=== PATIENT | female | born 1985 | race Caucasian/White ===

== ENCOUNTER 2016-03-29 19:48 | Emergency (ER) | payer BC ==
[~2016-03-29] VITALS: Ht 177.8 cm; Wt 163.6 kg
[~2016-03-29 19:48] MED LIST: ALDOMET 250MG250 MG PO; AMOXICILLIN 8751 TAB PO; ANTIVERT 25MG25 MG PO; ATIVAN 0.50.5 MG/TAB PO; BACTRIM DS 8001 TAB PO; BCP TD; CARAFATE 1GM1 G PO; METHYLDOPA PO; MOTRIN 600600 MG/TAB PO; MOTRIN 800800 MG/TAB PO; NORCO 325 MG-7.1 TAB PO; PERCOCET 325 MG1 TA2 PO; PRENATAL VITAMI1 TA5 PO; PRENATAL1 TA1; PROCARDIA XL 6060 MG PO; PROTONIX 40MG T40 MG PO
[2016-03-29 19:52] VITALS: TEMP 98.6
[2016-03-29] MEDS ORDERED: PRILOSEC 20MG20 MG PO (19:56)
[2016-03-29] MEDS ORDERED: NORCO 325 MG-51 TAB PO (20:42)
[2016-03-29] MEDS ORDERED: BACTRIM DS 8001 TAB PO (20:42)
[2016-03-29 20:51] VITALS: BP 143/85; PULSE 89
== END 2016-03-29 20:53 | disposition home or self-care (01) ==
LOC: COL.ER 19:48
DX: L02.412 Cutaneous abscess of left axilla (principal)

== ENCOUNTER 2016-10-07 18:28 | Emergency (ER) | payer BC ==
[~2016-10-07] VITALS: Ht 177.8 cm; Wt 159.1 kg
[~2016-10-07 18:28] MED LIST changes: +NORCO 325 MG-51 TAB PO; +PRILOSEC 20MG20 MG PO
[2016-10-07 18:30] VITALS: TEMP 98.5
[2016-10-07 19:08] LABS: BASO # 0.1 (0.0-0.2); BASO % 0.7 % (0.0-2.0); EOS # 0.2 (0.0-0.7); EOS % 1.5 % (0-4.0); GRAN # 6.9 (1.4-6.5); GRAN % 57.4 % (42.2-75.2); HEMATOCRIT 39.3 % (37.0-47.0); LYMPH # 4.1 (1.2-3.4); LYMPH % 33.6 % (20.0-51.0); MEAN CELL VOLUME 75 fl (80.0-100.0); MEAN CORPUSCULAR HEMOGLOBIN 23 pg (27.0-31.0); MEAN CORPUSCULAR HGB CONC 30 g/dl (33.0-37.0); MEAN PLATELET VOLUME 10.3 fl (7.4-10.4); MONO # 0.8 (0.1-0.6); MONO % 6.4 % (1.7-9.3); PLATELET COUNT 394 K/mm3 (130-400); RED BLOOD COUNT 5.24 M/mm3 (4.10-5.30); REDCELL DISTRIBUTION WIDTH-CV 15.5 % (11.5-14.5); WHITE BLOOD COUNT 12.1 K/mm3 (4.8-10.8)
[2016-10-07 19:09] LABS: HEMOGLOBIN 11.8 g/dl (12.5-16.0)
[2016-10-07 19:21] LABS: ADJUSTED CALCIUM 9.3 mg/dL (8.4-10.2); ALANINE AMINOTRANSFERASE 61 U/L (9-52); ALBUMIN 4.6 gm/dL (3.5-5.0); ALKALINE PHOSPHATASE 106 U/L (50-136); ANION GAP 14 mmol/L (7-16); BILIRUBIN,TOTAL 0.9 mg/dL (0.0-1.0); BLOOD UREA NITROGEN 12 mg/dL (7-17); C-REACTIVE PROTEIN 1.3 mg/dL (0.0-0.9); CALCIUM 9.8 mg/dL (8.4-10.2); CARBON DIOXIDE 24 mmol/L (22-30); CHLORIDE 101 mmol/L (98-107); GLUCOSE 123 mg/dL (74-106); LIPASE 131 U/L (23-300); POTASSIUM 3.9 mmol/L (3.4-5.0); SODIUM 139 mmol/L (137-145); TOTAL PROTEIN 8.6 gm/dL (6.4-8.2)
[2016-10-07 19:34] LABS: TROPONIN-I < 0.012 ng/mL (0.000-0.034)
[2016-10-07] MEDS ORDERED: PROTONIX 40MG T40 MG PO (20:03)
[2016-10-07 20:39] VITALS: BP 115/68; PULSE 81
== END 2016-10-07 20:41 | disposition home or self-care (01) ==
LOC: COL.ER 18:28
PROVIDERS: Emergency Medicine
DX: R07.89 Other chest pain (principal)
CPT/HCPCS: J7030

== ENCOUNTER → 2017-04-27 | Outpatient (CLI) | payer BC | LOC: COL.RAD 12:29 | DX: R10.11 Right upper quadrant pain (principal); R79.89 Other specified abnormal findings of blood chemistry ==

== ENCOUNTER → 2017-06-28 | Outpatient (CLI) | payer BC | LOC: COL.LAB 14:57 → COL.RAD 15:00 | DX: R10.32 Left lower quadrant pain (principal); R50.9 Fever, unspecified | CPT/HCPCS: Q9967 ==

== ENCOUNTER 2017-07-02 08:41 | Emergency (ER) | payer BC ==
[~2017-07-02] VITALS: Ht 177.8 cm; Wt 150.0 kg
[2017-07-02 09:28] LABS: BASO # 0.1 (0.0-0.2); BASO % 0.7 % (0.0-2.0); EOS # 0.1 (0.0-0.7); EOS % 1.4 % (0-4.0); GRAN # 3.9 (1.4-6.5); GRAN % 55.5 % (42.2-75.2); LYMPH # 2.5 (1.2-3.4); LYMPH % 35.1 % (20.0-51.0); MEAN CELL VOLUME 74 fl (80.0-100.0); MEAN CORPUSCULAR HGB CONC 29 g/dl (33.0-37.0); MEAN PLATELET VOLUME 10.1 fl (7.4-10.4); MONO # 0.5 (0.1-0.6); PLATELET COUNT 359 K/mm3 (130-400); RED BLOOD COUNT 4.55 M/mm3 (4.10-5.30); REDCELL DISTRIBUTION WIDTH-CV 16.2 % (11.5-14.5)
[2017-07-02 09:29] LABS: HEMATOCRIT 33.7 % (37.0-47.0); HEMOGLOBIN 9.8 g/dl (12.5-16.0); MEAN CORPUSCULAR HEMOGLOBIN 22 pg (27.0-31.0)
[2017-07-02] MEDS ORDERED: CIPRO 500MG TA500 MG PO (09:37)
[2017-07-02] MEDS ORDERED: GLUCOPHAGE1000 MG PO (09:37)
[2017-07-02] MEDS ORDERED: VICTOZA6 MG/ML SQ (09:37)
[2017-07-02 09:38] LABS: ALBUMIN 3.6 gm/dL (3.5-5.0); BILIRUBIN,TOTAL 0.5 mg/dL (0.0-1.0); C-REACTIVE PROTEIN 1.2 mg/dL (0.0-0.9); CALCIUM 8.6 mg/dL (8.4-10.2); CREATININE, serum 0.65 mg/dL (0.52-1.25); TOTAL PROTEIN 7.3 gm/dL (6.4-8.2)
[2017-07-02 09:55] VITALS: BP 131/60; TEMP 98.1
[2017-07-02 10:36] LABS: COLLECTION METHOD CLEAN CATCH
[2017-07-02 10:43] LABS: PH 6 (5-8); URINE APPEARANCE Clear; URINE BACTERIA None Seen /hpf; URINE BILIRUBIN Negative (NEGATIVE); URINE BLOOD 1+ (NEGATIVE); URINE COLOR Yellow; URINE GLUCOSE 3+ (NEGATIVE); URINE KETONE Negative (NEGATIVE); URINE LEUKOCYTE ESTERASE Negative (NEGATIVE); URINE NITRATE Negative (NEGATIVE); URINE PROTEIN(semi-quant) Negative (NEGATIVE); URINE RBC 0-2 /hpf; URINE UROBILINOGEN Negative (NEGATIVE)
[2017-07-02] MEDS ORDERED: NORCO 325 MG-51 TAB PO (10:45)
[2017-07-02 11:18] VITALS: PULSE 66
== END 2017-07-02 11:18 | disposition home or self-care (01) ==
LOC: COL.ER 08:41
PROVIDERS: Physician Assistant
DX: R10.32 Left lower quadrant pain (principal); E11.9 Type 2 diabetes mellitus without complications; R19.7 Diarrhea, unspecified; K21.9 Gastro-esophageal reflux disease without esophagitis; Z79.84 Long term (current) use of oral hypoglycemic drugs; D50.9 Iron deficiency anemia, unspecified
CPT/HCPCS: J1170; J2405; J2550; J7030

== ENCOUNTER 2017-07-16 12:57 | Day surgery (SDC) | payer BC ==
[~2017-07-16] VITALS: Ht 177.8 cm; Wt 147.2 kg
[~2017-07-16 12:57] MED LIST changes: +CIPRO 500MG TA500 MG PO; +GLUCOPHAGE1000 MG PO; +VICTOZA6 MG/ML SQ
[2017-07-16 13:32] VITALS: BP 148/105; PULSE 71; TEMP 97.4
[2017-07-16] MEDS ORDERED: VICTOZA6 MG/ML SQ (13:41)
[2017-07-16] MEDS ORDERED: GLUCOPHAGE XR500 M1 PO (13:41)
[2017-07-16] MEDS ORDERED: ULTRAM 50MG TAB50 MG PO (13:42)
[2017-07-16] MEDS ORDERED: NATURAL IRON65 MG PO (13:43)
[2017-07-16] MEDS ORDERED: TYLENOL 500MG500 MG PO (13:43)
[2017-07-16 15:20] VITALS: BP 133/70; PULSE 84
[2017-07-16 15:35] VITALS: BP 137/76; PULSE 64
[2017-07-16 16:17] VITALS: BP 145/75; PULSE 74
== END 2017-07-16 15:40 | disposition home or self-care (01) ==
LOC: SDCO 12:57
DX: R10.32 Left lower quadrant pain (principal); K21.9 Gastro-esophageal reflux disease without esophagitis; R19.4 Change in bowel habit; K59.00 Constipation, unspecified; E11.9 Type 2 diabetes mellitus without complications; D64.9 Anemia, unspecified; G47.33 Obstructive sleep apnea (adult) (pediatric); Z79.84 Long term (current) use of oral hypoglycemic drugs; Z90.49 Acquired absence of other specified parts of digestive tract
CPT/HCPCS: OP; J2250; J2405; J3010; J7030

== ENCOUNTER → 2017-07-22 | Outpatient (CLI) | payer BC ==
[~2017-07-22] MED LIST changes: +GLUCOPHAGE XR500 M1 PO; +NATURAL IRON65 MG PO; +TYLENOL 500MG500 MG PO; +ULTRAM 50MG TAB50 MG PO
== END ==
LOC: SUN.DIA 14:16
DX: E11.9 Type 2 diabetes mellitus without complications (principal); E66.9 Obesity, unspecified; Z68.42 Body mass index [BMI] 45.0-49.9, adult; Z71.3 Dietary counseling and surveillance; Z87.891 Personal history of nicotine dependence
CPT/HCPCS: G0108

== ENCOUNTER → 2017-08-10 | Outpatient (CLI) | payer BC | LOC: COL.RAD 06:03 | DX: R11.10 Vomiting, unspecified (principal) | CPT/HCPCS: A9541 ==

== ENCOUNTER 2018-07-11 12:23 | Emergency (ER) | payer BC ==
[~2018-07-11] VITALS: Ht 177.8 cm; Wt 165.7 kg
[2018-07-11 12:32] VITALS: TEMP 98.1
[2018-07-11 13:13] LABS: BASO % 0.2 % (0.0-2.0); EOS # 0.1 (0.0-0.7); EOS % 1.1 % (0-4.0); GRAN # 8.1 (1.4-6.5); GRAN % 66.4 % (42.2-75.2); HEMATOCRIT 39.8 % (37.0-47.0); HEMOGLOBIN 12.5 g/dl (12.5-16.0); LYMPH % 24.9 % (20.0-51.0); MEAN CELL VOLUME 77 fl (80.0-100.0); MEAN CORPUSCULAR HEMOGLOBIN 24 pg (27.0-31.0); MEAN CORPUSCULAR HGB CONC 31 g/dl (33.0-37.0); MEAN PLATELET VOLUME 10.7 fl (7.4-10.4); MONO # 0.9 (0.1-0.6); PLATELET COUNT 300 K/mm3 (130-400); RED BLOOD COUNT 5.15 M/mm3 (4.10-5.30); REDCELL DISTRIBUTION WIDTH-CV 15.9 % (11.5-14.5)
[2018-07-11 13:32] LABS: COLLECTION METHOD CLEAN CATCH
[2018-07-11 13:34] LABS: TROPONIN-I < 0.012 ng/mL (0.000-0.035)
[2018-07-11 13:40] LABS: PH 7 (5-8); URINE APPEARANCE Clear; URINE BACTERIA Rare /hpf; URINE BILIRUBIN Negative (NEGATIVE); URINE BLOOD 1+ (NEGATIVE); URINE COLOR Straw; URINE GLUCOSE Negative (NEGATIVE); URINE KETONE Negative (NEGATIVE); URINE LEUKOCYTE ESTERASE Negative (NEGATIVE); URINE NITRATE Negative (NEGATIVE); URINE PROTEIN(semi-quant) Negative (NEGATIVE); URINE RBC 0-2 /hpf; URINE UROBILINOGEN Negative (NEGATIVE)
[2018-07-11 14:05] LABS: ALBUMIN 3.8 gm/dL (3.5-5.0); BILIRUBIN,TOTAL 0.5 mg/dL (0.0-1.0); CALCIUM 9.3 mg/dL (8.4-10.2); CREATININE, serum 0.47 (0.52-1.25); POTASSIUM 3.7 mmol/L (3.4-5.0); TOTAL PROTEIN 7.6 gm/dL (6.4-8.2)
[2018-07-11 17:28] VITALS: BP 135/80; PULSE 84
== END 2018-07-11 17:31 | disposition other institution (70) ==
LOC: COL.ER 12:23
PROVIDERS: Emergency Medicine
DX: O99.512 Diseases of the respiratory system complicating pregnancy, second trimester (principal); R06.00 Dyspnea, unspecified; Z3A.16 16 weeks gestation of pregnancy

== ENCOUNTER → 2018-08-31 | Outpatient (CLI) | payer BC | LOC: SUN.DIA | DX: O24.419 Gestational diabetes mellitus in pregnancy, unspecified control (principal); Z3A.22 22 weeks gestation of pregnancy | CPT/HCPCS: G0108 ==

== ENCOUNTER 2018-09-06 23:06 | Outpatient (CLI) | payer BC ==
[~2018-09-06] VITALS: Ht 175.3 cm; Wt 163.2 kg
--- NOTE | 2018-09-06 23:10 | NUR ---
Ambulatory to unit, accompanied by family. Pt reports bp's on home machine 170's/100's mild headache. Review plan of care.
--- NOTE | 2018-09-06 23:15 | NUR ---
BP obtained with large cuff on upper L arm 147/76 BP obtained with small cuff on lower L arm 148/87 BP with pt's home bp machine, large cuff on upper L arm 174/102. attempt to obtain FHT's unable @ this time r/t obese body habitus. Pt reports " I can feel her moving in there"
[2018-09-06 23:44] VITALS: BP 178/82; PULSE 83
[2018-09-06 23:48] LABS: BASO % 0.3 % (0.0-2.0); EOS # 0.1 (0.0-0.7); GRAN # 7.1 (1.4-6.5); GRAN % 62.8 % (42.2-75.2); HEMOGLOBIN 11.5 g/dl (12.5-16.0); LYMPH # 3.1 (1.2-3.4); LYMPH % 27.7 % (20.0-51.0); MEAN CELL VOLUME 82 fl (80.0-100.0); MEAN CORPUSCULAR HEMOGLOBIN 27 pg (27.0-31.0); MEAN CORPUSCULAR HGB CONC 33 g/dl (33.0-37.0); MEAN PLATELET VOLUME 10.4 fl (7.4-10.4); MONO # 0.9 (0.1-0.6); MONO % 7.7 % (1.7-9.3); PLATELET COUNT 267 K/mm3 (130-400); RED BLOOD COUNT 4.29 M/mm3 (4.10-5.30); REDCELL DISTRIBUTION WIDTH-CV 16.2 % (11.5-14.5)
[2018-09-06 23:50] LABS: HEMATOCRIT 35.2 % (37.0-47.0)
[2018-09-06 23:58] LABS: ALBUMIN 3.3 gm/dL (3.5-5.0); BILIRUBIN,TOTAL 0.2 mg/dL (0.0-1.0); CREATININE, serum 0.45 (0.52-1.25); POTASSIUM 3.7 mmol/L (3.4-5.0)
[2018-09-07] VITALS: BP 142/65; PULSE 83
--- NOTE | 2018-09-07 | NUR ---
Unable to obtain FHT's, palpable movements
[2018-09-07 00:15] VITALS: BP 164/74; PULSE 81
--- NOTE | 2018-09-07 00:15 | NUR ---
bedside sono by nurses with + cardiac motion and movement
[2018-09-07 00:30] VITALS: BP 156/65; PULSE 80
--- NOTE | 2018-09-07 01:10 | NUR ---
Discharge instructions reviewed with pt, questions invited and answered. Ambulatory off unit with family.
[2018-09-07 01:20] VITALS: BP 147/76; PULSE 88; TEMP 98.6
[2018-09-07 01:24] LABS: COLLECTION METHOD CLEAN CATCH
[2018-09-07 01:29] LABS: PH 7 (5-8); SQUAMOUS EPITHELIAL 0-2 /hpf; URINE APPEARANCE Clear; URINE BACTERIA None Seen /hpf; URINE BILIRUBIN Negative (NEGATIVE); URINE BLOOD Negative (NEGATIVE); URINE COLOR Yellow; URINE GLUCOSE Negative (NEGATIVE); URINE KETONE Negative (NEGATIVE); URINE LEUKOCYTE ESTERASE Negative (NEGATIVE); URINE NITRATE Negative (NEGATIVE); URINE PROTEIN(semi-quant) Negative (NEGATIVE); URINE RBC 0-2 /hpf; URINE UROBILINOGEN Negative (NEGATIVE); URINE WBC 0-2 /hpf
== END 2018-09-07 01:15 | disposition home or self-care (01) ==
LOC: LDRO 23:06 → LDR 23:50 → LDRO 23:50 → LDR 23:50 → LDRO 09-07 01:15 → LDR 09-07 01:15
PROVIDERS: Obstetrics & Gynecology
DX: O13.2 Gestational [pregnancy-induced] hypertension without significant proteinuria, second trimester (principal); Z3A.24 24 weeks gestation of pregnancy
CPT/HCPCS: OP

== ENCOUNTER 2018-10-10 07:39 | Outpatient (CLI) | payer BC ==
[~2018-10-10] VITALS: Ht 177.8 cm; Wt 163.6 kg
--- NOTE | 2018-10-10 07:45 | NUR ---
Patient arrives ambulatory with concerns of decreased movment. Patient reports she has not felt baby move since 1700 last night. Patient tearful and anxious. RN immediately at bedside, emotional support provided. Difficulty finding FHTs initially due to maternal size. Patient states "they had to do an ultrasound the last time I was here". FHTs found and noted in 150s. Difficulty tracing continuous strip due to maternal size. movement audible on u/s. Patient denies contractions, ROM or vaginal bleeding. VSS. 0805- Dr. Gomez notified of patient arrival and concerns. Physician had spoken to patient earlier in day and advised to come in. Reviewed patient history, FHR strip and difficulty tracing contiuously despite RN holding on monitor. Orders for BPP recieved. Patient updated on plan of care. Assessment completed.
[2018-10-10 07:54] VITALS: BP 128/58; PULSE 85
[2018-10-10] MEDS ORDERED: NOVOLOG 100U100 U/M1 SQ (08:07)
[2018-10-10] MEDS ORDERED: GLUCOPHAGE500 MG/TAB PO (08:07)
[2018-10-10] MEDS ORDERED: NORMODYNE200 MG PO (08:08)
[2018-10-10] MEDS ORDERED: PRENATAL (08:08)
--- NOTE | 2018-10-10 08:50 | NUR ---
Ultrasound at bedside to perform BPP.
[2018-10-10 09:00] VITALS: BP 128/58; PULSE 85; TEMP 98.2
--- NOTE | 2018-10-10 10:48 | NUR ---
1035- Dr. Gomez notified and reviewed BPP results 10/27. Patient has reported movement since being on unit. Patient given discharge instructions. Kick counts and labor precautions reviewed. Denies questions. Leaves ambulatory at 1050.
== END 2018-10-10 10:50 | disposition home or self-care (01) ==
LOC: LDRO 07:39 → LDR 07:45 → LDRO 10:50
DX: O36.8130 Decreased fetal movements, third trimester, not applicable or unspecified (principal); Z3A.29 29 weeks gestation of pregnancy
CPT/HCPCS: OP

== ENCOUNTER 2018-12-08 16:36 | Inpatient (IN) | payer BC, OTHER ==
[~2018-12-08] VITALS: Ht 177.8 cm; Wt 168.2 kg
[2018-12-08] VITALS (16 sets, daily range): BP systolic 132–146; BP diastolic 51–96; PULSE 51–81; TEMP 98.1
[~2018-12-08 16:36] MED LIST changes: +GLUCOPHAGE500 MG/TAB PO; +NORMODYNE200 MG PO; +NOVOLOG 100U100 U/M1 SQ; +PRENATAL
--- NOTE | 2018-12-08 17:15 | NUR ---
Patient arrives ambulatory with spouse for repeat section. Patient sent over from office for severe preeclampsia. Patient denies contractions, ROM, or vaginal bleeding. Reports normal movement. Reports headache and seeing spots for the past week. Denies RUQ pain. Patient changes into gown, EFM explained and placed. Difficulty tracing FHR due to maternal habitus. Multiple RNs attempting to obtain strip. FHR noted at 145 bpm. 1740- IV started by Steve Chirinos RN and labs obtained. NS infusing per order. Consents explained and signed. Assessment completed. 1749- Dr. Andres at bedside. Reviews FHR strip and notified that more time is needed to obtain strip. Orders per provider to head to OR at this time, no need for FHR strip or labs to result. 175- Patient off EFM and to OR. See intraoperative report. 1814- Report to Gisela Hernandez RN.
[2018-12-08] MEDS ORDERED: LANTUS100 U/ML SQ (17:43)
[2018-12-08] MEDS ORDERED: NOVOLIN N100 U/ML (17:44)
[2018-12-08 18:01] LABS: BASO % 0.2 % (0.0-2.0); EOS # 0.1 (0.0-0.7); EOS % 0.8 % (0-4.0); GRAN # 9.2 (1.4-6.5); GRAN % 70.7 % (42.2-75.2); LYMPH # 2.6 (1.2-3.4); LYMPH % 20.1 % (20.0-51.0); MEAN CELL VOLUME 85 fl (80.0-100.0); MEAN CORPUSCULAR HEMOGLOBIN 28 pg (27.0-31.0); MEAN CORPUSCULAR HGB CONC 32 g/dl (33.0-37.0); MEAN PLATELET VOLUME 10.7 fl (7.4-10.4); MONO % 7.6 % (1.7-9.3); PLATELET COUNT 317 K/mm3 (130-400); RED BLOOD COUNT 4.36 M/mm3 (4.10-5.30); REDCELL DISTRIBUTION WIDTH-CV 15.3 % (11.5-14.5)
--- NOTE | 2018-12-09 02:30 | NUR ---
Pt able to lift and hold each leg off of bed for 5 seconds. Pt able to ambulate to bathroom with standby assistance. Hough catheter removed, 600 mL nehemias colored urine. Pericare explained and provided. New mesh panties and peripad on. Clean gown on. Abdominal binder readjusted.
[2018-12-09 04:30] VITALS: BP 122/65; PULSE 68; TEMP 97.9
[2018-12-09 07:35] LABS: HEMOGLOBIN 10.4 g/dl (12.5-16.0)
[2018-12-09 07:44] VITALS: BP 123/69; PULSE 71; TEMP 97.6
[2018-12-09 07:45] LABS: ALBUMIN 2.8 gm/dL (3.5-5.0); BILIRUBIN,TOTAL 0.4 mg/dL (0.0-1.0); CALCIUM 8.8 mg/dL (8.4-10.2); CREATININE, serum 0.53 (0.52-1.25); POTASSIUM 3.9 mmol/L (3.4-5.0); TOTAL PROTEIN 5.9 gm/dL (6.4-8.2)
[2018-12-09 07:49] LABS: HEMATOCRIT 32.3 % (37.0-47.0)
--- NOTE | 2018-12-09 09:15 | NUR ---
Initial visit; Patient thanked Etl Analyst for offering congratulations and God's blessings for the of her daughter. Etl Analyst thanked Mom for choosing [facility].
[2018-12-09 10:38] VITALS: BP 118/73; PULSE 69; TEMP 97.7
--- NOTE | 2018-12-09 10:40 | NUR ---
INT d\c cath intact. clot noted at end of cath.
[2018-12-09 17:07] VITALS: BP 133/77; PULSE 73; TEMP 98
[2018-12-09 22:20] VITALS: BP 136/76; PULSE 65; TEMP 98.1
[2018-12-10 08:40] VITALS: BP 137/86; PULSE 69; TEMP 98.2
[2018-12-10] MEDS ORDERED: PERCOCET 325 MG1 TA2 PO (11:23)
[2018-12-10] MEDS ORDERED: IBU600 MG PO (11:23)
== END 2018-12-10 13:20 | disposition home or self-care (01) | DRG 788 ==
LOC: OB 16:36
PROVIDERS: ADMIT Obstetrics & Gynecology
PROC: 10D00Z1 Extraction of Products of Conception, Low, Open Approach (ICD-10-PCS; principal; 2018-12-08)
DX: O14.14 Severe pre-eclampsia complicating childbirth (principal); O24.12 Pre-existing type 2 diabetes mellitus, in childbirth; E11.9 Type 2 diabetes mellitus without complications; O99.214 Obesity complicating childbirth; O99.824 Streptococcus B carrier state complicating childbirth; O99.62 Diseases of the digestive system complicating childbirth; E66.9 Obesity, unspecified; K21.9 Gastro-esophageal reflux disease without esophagitis; G47.30 Sleep apnea, unspecified; Z3A.37 37 weeks gestation of pregnancy; Z37.0 Single live birth; Z79.4 Long term (current) use of insulin
CPT/HCPCS: J0690; J1815; J1885; J2270; J2370; J2405; J2590; J2765; J7030

== ENCOUNTER 2018-12-15 16:14 | Observation (INO) | payer BC ==
[~2018-12-15] VITALS: Ht 177.8 cm; Wt 159.0 kg
[~2018-12-15 16:14] MED LIST changes: +IBU600 MG PO; +LANTUS100 U/ML SQ; +NOVOLIN N100 U/ML
[2018-12-15 17:05] LABS: COLLECTION METHOD CLEAN CATCH
[2018-12-15 17:11] LABS: PH 7 (5-8); SQUAMOUS EPITHELIAL 0-2 /hpf; URINE APPEARANCE Clear; URINE BACTERIA None Seen /hpf; URINE BILIRUBIN Negative (NEGATIVE); URINE BLOOD 3+ (NEGATIVE); URINE COLOR Straw; URINE GLUCOSE Negative (NEGATIVE); URINE KETONE Negative (NEGATIVE); URINE LEUKOCYTE ESTERASE Negative (NEGATIVE); URINE NITRATE Negative (NEGATIVE); URINE PROTEIN(semi-quant) Negative (NEGATIVE); URINE RBC 0-2 /hpf; URINE UROBILINOGEN Negative (NEGATIVE)
[2018-12-15 17:28] LABS: BASO # 0.1 (0.0-0.2); BASO % 0.5 % (0.0-2.0); EOS # 0.2 (0.0-0.7); GRAN # 5.7 (1.4-6.5); GRAN % 57.7 % (42.2-75.2); HEMOGLOBIN 11.2 g/dl (12.5-16.0); LYMPH # 2.9 (1.2-3.4); LYMPH % 29.7 % (20.0-51.0); MEAN CELL VOLUME 85 fl (80.0-100.0); MEAN CORPUSCULAR HEMOGLOBIN 27 pg (27.0-31.0); MEAN CORPUSCULAR HGB CONC 32 g/dl (33.0-37.0); MEAN PLATELET VOLUME 9.9 fl (7.4-10.4); MONO % 9.8 % (1.7-9.3); PLATELET COUNT 375 K/mm3 (130-400); RED BLOOD COUNT 4.17 M/mm3 (4.10-5.30); REDCELL DISTRIBUTION WIDTH-CV 14.6 % (11.5-14.5)
[2018-12-15 17:30] LABS: HEMATOCRIT 35.4 % (37.0-47.0)
[2018-12-15 17:32] LABS: PROTHROMBIN TIME 11.2 SECONDS (9.7-12.8)
[2018-12-15 17:34] LABS: PARTIAL THROMBOPLASTIN TIME 34.1 SECONDS (26.0-37.0)
[2018-12-15 17:38] LABS: ALBUMIN 3.6 gm/dL (3.5-5.0); BILIRUBIN,TOTAL 0.3 mg/dL (0.0-1.0); CREATININE, serum 0.75 (0.52-1.25); TOTAL PROTEIN 6.8 gm/dL (6.4-8.2)
--- NOTE | 2018-12-15 19:00 | NUR ---
1900 TO 222 PER CART FROM ER. IV INF IN RIGHT HAND PER IV PUMP. TELEMETRY PATCHES ON. VOICES C/O SOME RIGHT SIDED ABD PAIN AT THIS TIME. 1914 DR ACUNA IN ROOM TO VISIT WITH PT. TELEMETRY CANCELLED. IV TO INT. NEW ORDERS RECIEVED. PT TO TAKE OWN METFORMIN AT BEDTIME TONIGHT. REGULAR DIET TAKEN.
[2018-12-15 19:15] VITALS: BP 137/86; PULSE 55; TEMP 98.5
[2018-12-15 21:00] VITALS: BP 140/69; PULSE 56
[2018-12-15 22:00] VITALS: BP 137/86; PULSE 55; TEMP 98.5
[2018-12-16] VITALS (7 sets, daily range): BP systolic 130–153; BP diastolic 66–87; PULSE 55–90; TEMP 97.3–98.6
[2018-12-16 06:44] LABS: BASO # 0.1 (0.0-0.2); BASO % 0.6 % (0.0-2.0); EOS # 0.2 (0.0-0.7); EOS % 2.3 % (0-4.0); GRAN # 4.4 (1.4-6.5); GRAN % 52.8 % (42.2-75.2); HEMATOCRIT 33.3 % (37.0-47.0); HEMOGLOBIN 10.5 g/dl (12.5-16.0); LYMPH # 2.9 (1.2-3.4); LYMPH % 34.7 % (20.0-51.0); MEAN CELL VOLUME 85 fl (80.0-100.0); MEAN CORPUSCULAR HEMOGLOBIN 27 pg (27.0-31.0); MEAN CORPUSCULAR HGB CONC 32 g/dl (33.0-37.0); MEAN PLATELET VOLUME 9.8 fl (7.4-10.4); MONO # 0.8 (0.1-0.6); MONO % 9.2 % (1.7-9.3); PLATELET COUNT 321 K/mm3 (130-400); REDCELL DISTRIBUTION WIDTH-CV 14.6 % (11.5-14.5)
[2018-12-16 06:57] LABS: ALBUMIN 3.1 gm/dL (3.5-5.0); BILIRUBIN,TOTAL 0.3 mg/dL (0.0-1.0); CALCIUM 8.4 mg/dL (8.4-10.2); CREATININE, serum 0.69 (0.52-1.25); POTASSIUM 3.8 mmol/L (3.4-5.0); TOTAL PROTEIN 6.2 gm/dL (6.4-8.2)
[2018-12-17] VITALS (8 sets, daily range): BP systolic 133–163; BP diastolic 67–92; PULSE 65–89; TEMP 98.7–99
[2018-12-17] MEDS ORDERED: PROCARDIA XL 6060 MG PO (08:52)
== END 2018-12-17 16:30 | disposition home or self-care (01) ==
LOC: COL.ER 16:14 → OB 17:07
PROVIDERS: Physician Assistant; ADMIT Obstetrics & Gynecology
DX: O10.93 Unspecified pre-existing hypertension complicating the puerperium (principal); O24.13 Pre-existing type 2 diabetes mellitus, in the puerperium; E11.9 Type 2 diabetes mellitus without complications; Z79.84 Long term (current) use of oral hypoglycemic drugs; O99.215 Obesity complicating the puerperium; E66.01 Morbid (severe) obesity due to excess calories; O99.63 Diseases of the digestive system complicating the puerperium; K21.9 Gastro-esophageal reflux disease without esophagitis; O99.355 Diseases of the nervous system complicating the puerperium; G47.30 Sleep apnea, unspecified; Z86.19 Personal history of other infectious and parasitic diseases; Z79.899 Other long term (current) drug therapy; O26.63 Liver and biliary tract disorders in the puerperium; K76.0 Fatty (change of) liver, not elsewhere classified
CPT/HCPCS: G0378; J7030; J7050; Q9967

== ENCOUNTER 2020-06-11 18:27 | Outpatient (CLI) | payer BC ==
[2020-06-11] VITALS (23 sets, daily range): BP systolic 122–167; BP diastolic 60–98; PULSE 85–100; TEMP 98.7
[~2020-06-11] VITALS: Ht 175.3 cm; Wt 173.2 kg
--- NOTE | 2020-06-11 18:40 | NUR ---
G5L3. 32.1. Pt ambulatory to LDR 5. Pt was sent over from the office for elevated BP. Clean gown on. Pt in restroom for CC UA. 1845: EFM and TOCO explained and applied. Pulse ox applied and tracing well. Pt denies contractions, leaking of fluids or vaginal bleeding. Reports good movement. Pt does report a headache that started on her way to her apt but states it is not getting worse. Pt denies blurred vision or seeing spots. Minimal swelling noted around her ankles but pt state this is nothing new. Plan of care explained to pt and pt verbalizes her understanding. Denies questions at this time. 1854: Lab called. Serial BP's started and assessment completed. 1914: Broken deceleration noted down to 105bpm lasting 40seconds with spontaneous return to baseline. 2009: called and updated on pts status. See physican notification. 2024: called back after reviewing FHR strip at home. New orders received and pt updated on new plan of care. Pt verbalized her understanding. See phyiscan notification. 2026: Betamethasone administered per orders. 2040: Difficulty tracing FHR strip. This RN to stay in room and hand hold EFM. Pt reports no longer having a headache at this time. [place] given. 2058: Pt repositioned to left lateral position. This RN remains in room hand holding EFM. 2119: Pt repositoined to , this RN remians in room hand holding EFM and reviewing FHR strip. 2140: called and updated on pts status. Provider at home reviewing FHR strip. Discharge orders received and orders received to have pt call office in morning to schedule followup ultrasound tomorrow. Pt off the monitor and educated to change. 2154: Discharge instructions given to pt and stressed importance to calling office tomorrow morning for followup ultrasound and also to return to hosptial tomorrow evening at 2000 for second dose of betamethasone. Pt verbalized her understanding. Educated pt to call or return to hospital if she has any questions or concerns. Pt denies questions at this time. Pt ambulatory off unit.
[2020-06-11 19:18] LABS: BASO % 0.3 % (0.0-2.0); EOS # 0.1 (0.0-0.7); EOS % 0.8 % (0-4.0); GRAN # 7.7 (1.4-6.5); GRAN % 65.9 % (42.2-75.2); HEMOGLOBIN 11.4 g/dl (12.5-16.0); LYMPH # 2.9 (1.2-3.4); LYMPH % 24.6 % (20.0-51.0); MEAN CELL VOLUME 81 fl (80.0-100.0); MEAN CORPUSCULAR HEMOGLOBIN 26 pg (27.0-31.0); MEAN CORPUSCULAR HGB CONC 33 g/dl (33.0-37.0); MEAN PLATELET VOLUME 10.3 fl (7.4-10.4); MONO # 0.9 (0.1-0.6); MONO % 7.9 % (1.7-9.3); PLATELET COUNT 300 K/mm3 (130-400); RED BLOOD COUNT 4.35 M/mm3 (4.10-5.30); REDCELL DISTRIBUTION WIDTH-CV 14.7 % (11.5-14.5)
[2020-06-11 19:19] LABS: HEMATOCRIT 35.1 % (37.0-47.0)
[2020-06-11 19:27] LABS: COLLECTION METHOD CLEAN CATCH
[2020-06-11 19:34] LABS: ALBUMIN 3.5 gm/dL (3.5-5.0); BILIRUBIN,TOTAL 0.4 mg/dL (0.0-1.0); CALCIUM 8.9 mg/dL (8.4-10.2); CREATININE, serum 0.54 (0.52-1.25); POTASSIUM 3.6 mmol/L (3.4-5.0); TOTAL PROTEIN 7.1 gm/dL (6.4-8.2)
[2020-06-11 19:56] LABS: PH 7 (5-8); URINE APPEARANCE Hazy; URINE BACTERIA Rare /hpf; URINE BILIRUBIN Negative (NEGATIVE); URINE BLOOD 1+ (NEGATIVE); URINE COLOR Yellow; URINE GLUCOSE Negative (NEGATIVE); URINE KETONE Negative (NEGATIVE); URINE LEUKOCYTE ESTERASE Negative (NEGATIVE); URINE NITRATE Negative (NEGATIVE); URINE PROTEIN(semi-quant) Negative (NEGATIVE); URINE RBC 0-2 /hpf; URINE UROBILINOGEN Negative (NEGATIVE); URINE WBC 0-2 /hpf
== END 2020-06-11 21:55 | disposition home or self-care (01) ==
LOC: LDRO 18:27
PROVIDERS: Obstetrics & Gynecology
DX: O13.9 Gestational [pregnancy-induced] hypertension without significant proteinuria, unspecified trimester (principal); Z3A.00 Weeks of gestation of pregnancy not specified
CPT/HCPCS: J0702

== ENCOUNTER 2020-06-12 19:59 | Outpatient (CLI) | payer BC ==
--- NOTE | 2020-06-12 20:00 | NUR ---
PT TO UNIT AMBULATORY FOR SCHEDULED NST AND 2ND INJECTION OF BETAMETHASONE. PT DENIES CONTRACTIONS, LOF/VB, OR ANY CHANGES SINCE YESTERDAY'S VISIT. NO SVE NECESSARY AT THIS TIME, VS OBTAINED, AND EFMX2 APPLIED.
[2020-06-12 20:54] VITALS: BP 127/69; PULSE 82
--- NOTE | 2020-06-12 21:05 | NUR ---
NST COMPLETED, DR. AVILA NOTIFED AND OK'S PT TO DC HOME AT THIS TIME. 2ND BETAMETHASONE INJECTION GIVEN PER ORDERS PRIOR TO DISCHARGE. DISCHARGE INSTRUCTIONS REVIEWED, UNDERSTANDING VERBALIZED. PT OFF UNIT AMBULATORY FOR HOME.
== END 2020-06-12 21:05 | disposition home or self-care (01) ==
LOC: LDRO 19:59 → LDR 20:29 → LDRO 21:05 → LDR 21:05
DX: Z34.03 Encounter for supervision of normal first pregnancy, third trimester (principal)
CPT/HCPCS: OP; J0702

== ENCOUNTER 2020-06-25 17:05 | Outpatient (CLI) | payer BC, MEDICAID ==
[~2020-06-25] VITALS: Ht 175.3 cm; Wt 176.4 kg
--- NOTE | 2020-06-25 17:15 | NUR ---
1715-G5L3 34.1 week Patient to unit after being seen in office with elevated BP's. Assisted into gown and placed on EFM. FHR 130-135bpm with moderate variability. Reports good movement, denies regular contractiosn or leaking of fluid. Denies headache currently. Assessment complete. VSS 139/65, hear rate 91. Updated MD, see physician notifciation.
[2020-06-25] MEDS ORDERED: TRANDATE 200MG200 MG PO (17:26)
[2020-06-25] MEDS ORDERED: GLUCOPHAGE1000 MG PO ×2 (17:27→17:28)
[2020-06-25] MEDS ORDERED: HUMALOG PEN100 U/ML SQ ×2 (17:28→17:29)
[2020-06-25 17:30] VITALS: BP 139/65; PULSE 91; TEMP 98.5
[2020-06-25] MEDS ORDERED: NOVOLIN N100 U/ML SQ ×2 (17:32)
[2020-06-25] MEDS ORDERED: ASPIRIN 81M81 MG/TA2 PO (17:33)
[2020-06-25 17:45] VITALS: BP 140/65; PULSE 89
[2020-06-25 18:00] VITALS: BP 145/65; PULSE 85
--- NOTE | 2020-06-25 18:10 | NUR ---
1810-Patient Repositioned LL, difficulty keeping continuous tracing of FHR due to maternal positioning and habitus. RN at bedside adjusting EFM. 1823-Patient off EFM to bathroom.
[2020-06-25 18:27] VITALS: BP 136/70; PULSE 84
--- NOTE | 2020-06-25 18:27 | NUR ---
182-Dr. Andres in to see patient. Gives orders for discharge. Off EFM.
== END 2020-06-25 18:44 | disposition home or self-care (01) ==
LOC: LDRO 17:05
DX: O13.3 Gestational [pregnancy-induced] hypertension without significant proteinuria, third trimester (principal); Z3A.34 34 weeks gestation of pregnancy

== ENCOUNTER 2020-06-28 16:58 | Outpatient (CLI) | payer BC, MEDICAID ==
[~2020-06-28 16:58] MED LIST changes: +ASPIRIN 81M81 MG/TA2 PO; +HUMALOG PEN100 U/ML SQ; +NOVOLIN N100 U/ML SQ; +TRANDATE 200MG200 MG PO
--- NOTE | 2020-06-28 17:10 | NUR ---
Pt arrives on unit ambulatory after office visit. Follow up for NST, BP check and lab work. Changed into clean gown. EFM and toco applied. Denies regular ctx, vaginal bleeding, leaking of fluid and reports GFM. Pt denies pre-ecclampsia s/s. RN at bedside to obtain FHR. FHR audible.
[2020-06-28 17:44] VITALS: BP 147/83; PULSE 90; TEMP 98
[2020-06-28 17:48] LABS: BASO % 0.2 % (0.0-2.0); EOS # 0.1 (0.0-0.7); EOS % 0.8 % (0-4.0); GRAN # 8.6 (1.4-6.5); GRAN % 71.1 % (42.2-75.2); HEMATOCRIT 36.6 % (37.0-47.0); HEMOGLOBIN 11.7 g/dl (12.5-16.0); LYMPH # 2.5 (1.2-3.4); LYMPH % 20.8 % (20.0-51.0); MEAN CELL VOLUME 81 fl (80.0-100.0); MEAN CORPUSCULAR HEMOGLOBIN 26 pg (27.0-31.0); MEAN CORPUSCULAR HGB CONC 32 g/dl (33.0-37.0); MEAN PLATELET VOLUME 10.4 fl (7.4-10.4); MONO # 0.8 (0.1-0.6); MONO % 6.5 % (1.7-9.3); PLATELET COUNT 333 K/mm3 (130-400); RED BLOOD COUNT 4.54 M/mm3 (4.10-5.30); REDCELL DISTRIBUTION WIDTH-CV 15.5 % (11.5-14.5)
[2020-06-28 18:00] VITALS: BP 133/62; PULSE 96
[2020-06-28 18:10] LABS: ALBUMIN 3.5 gm/dL (3.5-5.0); BILIRUBIN,TOTAL 0.4 mg/dL (0.0-1.0); CALCIUM 9.9 mg/dL (8.4-10.2); CREATININE, serum 0.54 (0.52-1.25); POTASSIUM 3.7 mmol/L (3.4-5.0); TOTAL PROTEIN 7.2 gm/dL (6.4-8.2)
[2020-06-28 18:30] VITALS: BP 119/62; PULSE 88
== END 2020-06-28 18:40 | disposition home or self-care (01) ==
LOC: LDRO 16:58
PROVIDERS: Obstetrics & Gynecology
DX: O11.3 Pre-existing hypertension with pre-eclampsia, third trimester (principal); Z3A.34 34 weeks gestation of pregnancy

== ENCOUNTER 2020-07-09 07:32 | Inpatient (IN) | payer BC, MEDICAID ==
[2020-07-09] VITALS (16 sets, daily range): BP systolic 117–138; BP diastolic 59–79; PULSE 59–82; TEMP 98–98.2
[~2020-07-09] VITALS: Ht 177.8 cm; Wt 175.5 kg
[2020-07-09] MEDS ORDERED: TRANDATE 200MG200 MG (09:53)
[2020-07-09 09:57] LABS: ALBUMIN 3.8 gm/dL (3.5-5.0); BASO % 0.3 % (0.0-2.0); BILIRUBIN,TOTAL 0.4 mg/dL (0.0-1.0); CALCIUM 9.7 mg/dL (8.4-10.2); CREATININE, serum 0.6 (0.52-1.25); EOS # 0.1 (0.0-0.7); EOS % 0.8 % (0-4.0); GRAN # 8.5 (1.4-6.5); GRAN % 73.7 % (42.2-75.2); HEMATOCRIT 38.7 % (37.0-47.0); LYMPH # 2.1 (1.2-3.4); LYMPH % 18.2 % (20.0-51.0); MEAN CELL VOLUME 81 fl (80.0-100.0); MEAN CORPUSCULAR HEMOGLOBIN 25 pg (27.0-31.0); MEAN CORPUSCULAR HGB CONC 31 g/dl (33.0-37.0); MEAN PLATELET VOLUME 10.7 fl (7.4-10.4); MONO # 0.8 (0.1-0.6); MONO % 6.5 % (1.7-9.3); PLATELET COUNT 374 K/mm3 (130-400); RED BLOOD COUNT 4.76 M/mm3 (4.10-5.30); REDCELL DISTRIBUTION WIDTH-CV 15.9 % (11.5-14.5); TOTAL PROTEIN 7.7 gm/dL (6.4-8.2)
--- NOTE | 2020-07-09 13:15 | NUR ---
Pt to room after c/s delivery. VS monitored every 15 minutes. She states decreased sensation to bilateral legs. Pt is hungry, eating crackers and peanut butter. Shift assessment complete. Oxytocin infusing TKO to L hand. Patent, no redness, no swelling. Pt denies pain at this time. Hough catheter in place with darker yellow urine. Abdominal incision CDI. Vaginal pad on with heavy flow.
--- NOTE | 2020-07-09 15:00 | NUR ---
Pt ate 100% of meal at 1420. Abdominal incision CDI and lochia is moderate.
[2020-07-10 01:04] VITALS: BP 134/66; PULSE 70; TEMP 98
[2020-07-10 04:25] VITALS: BP 143/77; PULSE 90; TEMP 98
[2020-07-10 07:25] VITALS: BP 1118/58; PULSE 76; TEMP 97.9
[2020-07-10 07:31] LABS: HEMOGLOBIN 11.4 g/dl (12.5-16.0)
[2020-07-10 07:32] LABS: HEMATOCRIT 35.4 % (37.0-47.0)
--- NOTE | 2020-07-10 09:32 | NUR ---
Initial visit; Patient thanked Director Of Infection Prevention for looking in on her and offering God's blessings and keeping her in Director Of Infection Prevention's prayers.
[2020-07-10] MEDS ORDERED: IBU600 MG PO (12:57)
[2020-07-10] MEDS ORDERED: PERCOCET 325 MG1 TA2 PO (12:57)
[2020-07-10] MEDS ORDERED: GLUCOPHAGE500 MG/TAB PO (12:59)
[2020-07-10] MEDS ORDERED: TRANDATE 200MG200 MG PO (12:59)
[2020-07-10] MEDS ORDERED: GLUCOPHAGE1000 MG PO (12:59)
[2020-07-10 13:45] VITALS: BP 118/63; TEMP 97.8
== END 2020-07-10 14:45 | disposition home or self-care (01) | DRG 787 ==
LOC: OB 09:09
PROVIDERS: ADMIT Obstetrics & Gynecology
PROC: 10D00Z1 Extraction of Products of Conception, Low, Open Approach (ICD-10-PCS; principal; 2020-07-09)
DX: O11.4 Pre-existing hypertension with pre-eclampsia, complicating childbirth (principal); O99.354 Diseases of the nervous system complicating childbirth; O10.02 Pre-existing essential hypertension complicating childbirth; Z3A.36 36 weeks gestation of pregnancy; Z37.0 Single live birth; O99.214 Obesity complicating childbirth; O40.3XX0 Polyhydramnios, third trimester, not applicable or unspecified; O24.12 Pre-existing type 2 diabetes mellitus, in childbirth; E11.9 Type 2 diabetes mellitus without complications; Z79.4 Long term (current) use of insulin; O36.63X0 Maternal care for excessive fetal growth, third trimester, not applicable or unspecified; Z28.21 Immunization not carried out because of patient refusal; E66.01 Morbid (severe) obesity due to excess calories; G47.33 Obstructive sleep apnea (adult) (pediatric); Z99.89 Dependence on other enabling machines and devices
CPT/HCPCS: J0690; J1100; J1815; J1885; J2405; J2590; J7030; J7120

== ENCOUNTER → 2020-07-10 | Outpatient (CLI) | payer BC, MEDICAID ==
[~2020-07-10] MED LIST changes: +TRANDATE 200MG200 MG
== END ==
LOC: ZCOL.LAB 07-05 13:18
DX: Z20.822 Contact with and (suspected) exposure to COVID-19 (principal)